=== PATIENT | female | born 1965 | race Caucasian/White ===

== ENCOUNTER → 2024-03-02 09:49 | Outpatient (REF) | payer BC, SELFPAY | LOC: WDC 09:49 | PROVIDERS: ATTENDING PHYSICIAN Physician Assistant Medical | DX: N63.10 Unspecified lump in the right breast, unspecified quadrant (principal); R22.30 Localized swelling, mass and lump, unspecified upper limb; N63.31 Unspecified lump in axillary tail of the right breast | CPT/HCPCS: 76642; 77062; 77066 ==

== ENCOUNTER → 2024-03-14 08:38 | Outpatient (REF) | payer BC, SELFPAY | LOC: HWRAD 08:38 | PROVIDERS: ATTENDING PHYSICIAN Physician Assistant Medical | DX: R22.1 Localized swelling, mass and lump, neck (principal) | CPT/HCPCS: 76536 ==

== ENCOUNTER → 2024-04-14 08:58 | Outpatient (REF) | payer BC, SELFPAY | LOC: HWRAD 08:58 | PROVIDERS: ATTENDING PHYSICIAN Physician Assistant; FAMILY PHYSICIAN Physician Assistant Medical | DX: R10.11 Right upper quadrant pain (principal) | CPT/HCPCS: 76700 ==

== ENCOUNTER → 2024-06-02 13:32 | Outpatient (REF) | payer BC, SELFPAY | LOC: PAVMRI 13:32 | PROVIDERS: ATTENDING PHYSICIAN Physician Assistant | DX: K76.89 Other specified diseases of liver (principal); R10.11 Right upper quadrant pain | CPT/HCPCS: 74183; A9575 ==

== ENCOUNTER 2024-07-06 06:17 | Day surgery (SDC) | payer BC, SELFPAY | END 2024-07-06 09:48 | disposition home or self-care (01) | LOC: GI 06:17 | PROVIDERS: ATTENDING PHYSICIAN Internal Medicine | DX: R10.11 Right upper quadrant pain (principal); K29.50 Unspecified chronic gastritis without bleeding; K20.0 Eosinophilic esophagitis | CPT/HCPCS: 43239; 88305; 88342 ==